=== PATIENT | female | born 1990 | race African-American/Black ===

== ENCOUNTER 2017-07-12 14:10 | Emergency (ER) | payer SELFPAY ==
[2017-07-12 14:20] VITALS: BP 119/69; BMI 26.3
[2017-07-12] MEDS ORDERED: XYLOCAINE VISCOUS MT STA (15:14)
[2017-07-12] MEDS ORDERED: AUGMENTIN 500 MG/125 MG TAB PO ONE ×2 (15:14→15:22)
[2017-07-12] MEDS ORDERED: TORADOL 60 MG VIAL IM ONE (15:14)
--- NOTE | 2017-07-12 15:18 | DR.GENAD ---
HPI - PCP Primary Care Physician: NONE - Complaint/Symptoms Chief Complaint Doctors Comments: Patient complains of right lower teeth pain for the past 7 days getting worst today. Stats she has been taking over the counter medicine for pain without improvement. States she has taken BC powder. States she does not have a local doctor or a dentist. States the pain in 9 of 10. She denies fever, chills, nausea or vomiting. States she is walking today and is unable to eat or chew on the right side. Chief Complaint:: "I HAVE HAD A TOOTHACHE FOR A WEEK NOW AND IT'S GETTING YOUR. 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 - Family History History of Family Medical Conditions: Yes Family Medical History: Diabetes Mellitus, Hypertension - Social History Does patient currently use any type of tobacco product: Yes Have you used tobacco products in the last 12 months: Yes Type of Tobacco Use: Cigars How many years tobacco product used: 2 Does any household member use tobacco: Yes Alcohol Use: None Do you use any recreational Drugs:: Yes Lives With: Alone Lives Where: Home - infectious screening In the last 2 months have you had wt loss of >10#?: NO Have you had fever, night sweats or hemotysis?: No Have you traveled outside the country in the last 6 months?: No ROS - Review of Systems Constitutional: No Symptoms Reported. negative: See HPI, Chills, Diaphoresis, Fever, Malaise, Weakness, Irritable, Fatigue, Loss of Appetite, Other Eyes: No Symptoms Reported ENTM: No Symptoms Reported, Nose Congestion, Mouth Pain. negative: See HPI, Ear Pain, Ear Discharge, Pulling on Ears, Hearing Loss, Nose Pain, Nose Discharge, Epistaxis, Mouth Swelling, Loose Teeth, Drooling, Throat Pain, Throat Swelling, Ear Foreign Body Respiratoy: No Symptoms Reported Cardiovascular: No Symptoms Reported. negative: See HPI, Chest Pain, Edema, Palpitations, Syncope, Cyanosis, Skin Mottling, Other Gastrointestinal/Abdominal: No Symptoms Reported. negative: See HPI, Abdominal Pain, Constipation, Diarrhea, Nausea, Vomiting, Food Intolerance, Other Genitourinary: No Symptoms Reported Neurological: No Symptoms Reported Musculoskeletal: No Symptoms Reported Integumentary: No Symptoms Reported. negative: See HPI, Change in Color, Change in Hair/Nails, Dryness, Lesions, Lumps, Rash, Itching, Wound, Bruises, Juandice, Other Hematologic/Lymphatic: No Symptoms Reported Endocrine: No Symptoms Reported. negative: See HPI, Excessive Sweating, Flushing, Intolerance to Cold, Intolerance to Heat, Increased Hunger, Increased Thirst, Increased Urine, Unexplained Weight Gain, Unexplained Weight Loss, Failure to Thrive, Decreased Appetite, Other Psychiatric: No Symptoms Reported PE - Vital Signs Vitals: Temperature 98.5 F Pulse Rate 72 Respiratory Rate 18 Blood Pressure 119/69 O2 Sat by Pulse Oximetry 97 - General Limitations: No Limitations General Appearance: Alert, In Distress (moderate) - Head Head Exam: Normal Inspection, Atraumatic, Normocephalic - Eyes Eye exam: Normal Appearance, PERRL, EOMI. negative: Scleral Icterus, Conjunctival Injection, Nystagmus, Miosis, Mydrasis, Periorbital Swelling, Periorbital Tenderness, Other - ENT ENT Exam: Normal Exam, Normal Oropharynx, Normal External Ear Exam, Mucous Membranes Moist, TM's Normal Bilaterally TM/Canal Exam: Bilateral Normal Nose Exam: Normal Nose Exam Mouth Exam: Normal Inspection Throat Exam: Normal Inspection - Neck Neck Exam: Normal Inspection, Full ROM, Trachea Midline - Chest Chest Inspection: Normal Inspection, Symmetric Chest Wall Rise - Respiratory Respiratory Exam: Normal Lung Sounds Bilat Respiratory Exam: Bilateral Clear to Auscultation - Cardiovascular Cardiovascular Exam: Regular Rate, Normal Rhythm, Normal Heart Sounds. negative : Bradycardia, Tachycardia, Irregular Rhythm, Systolic Murmur, Diastolic Murmur , Rubs, Gallop, Clicks, JVD, +S1, +S2, +S3, +S4, Other - Abdominal Exam Abdominal Exam: Normal Inspection, Normal Bowel Sounds, Soft. negative: Distention, Tenderness, Guarding, Rebound, Rigidity, Dimnished Bowel Sounds, Hyperactive Bowel Sounds, Hypoactive Bowel Sounds, Organomegaly, Trauma, Incision, Ascites, Mass, Bruit, Pulsatile Mass, Hernia, Other Abdominal Tenderness: negative: RUQ, RLQ, LUQ, LLQ, Epigastrium, Suprapubic, Diffuse, Mild, Moderate, Severe, Other - Extremities Extremities Exam: Normal Inspection, Full ROM, Normal Capillary Refill. negative: Tenderness, Edema, Joint Swelling, Calf Tenderness, Other - Back Back Exam: Normal Inspection, Full ROM. negative: Tenderness, (R) CVA Tenderness, (L) CVA Tenderness, Muscle Spasm, Paraspinal Tenderness, Vertebral Tenderness, Rashes, (R) Sciatic Notch Tenderness, (L) Sciatic Notch Tendern, (R ) Straight Leg Raise, (L) Straight Leg Raise, Other - Neurologic Neurological Exam: Alert, Oriented X3, CN II-XII Intact, Normal Gait, Reflexes Normal - Psychiatric Psychiatric Exam: Normal Affect, Normal Mood. negative: Depressed, Agitated, Anxious, Flat Affect, Manic, Homicidal Ideation, Suicidal Ideation, Other - Skin Skin Exam: Warm, Dry, Intact, Normal Color. negative: Rash, Cyanosis, Diaphoresis, Erythema, Pallor, Mottled, Other - Diagnosis Discharge Problem: Dental caries, Pain, dental - Discharge Plan Disposition: 01 HOME, SELF-CARE Condition: Good Prescriptions: Acetaminophen/Codeine Tab [TYLENOL w/CODEINE #3 (300 MG/30 MG) *] 1 tab PO Q4- 6H PRN #30 tab PRN Reason: Pain Amoxicillin [AMOXIL CAP 500 MG *] 500 mg PO TID #30 cap - Follow ups/Referrals Follow ups/Referrals: NFD,None [Primary Care Provider] - 3 days - Instructions Instructions: Dental Caries, Preventive Dental Care, Adult
[2017-07-12] MEDS ORDERED: TORADOL 60 MG VIAL ONE (15:22)
[2017-07-12] MEDS ORDERED: XYLOCAINE VISCOUS MT ONE (15:27)
[2017-07-12] MEDS ORDERED: XYLOCAINE VISCOUS ONE (15:29)
== END 2017-07-12 15:53 | disposition home or self-care (01) ==
LOC: ER 14:35
DX: K02.9 Dental caries, unspecified (principal); K08.89 Other specified disorders of teeth and supporting structures
CPT/HCPCS: 96372; 99282; J1885

== ENCOUNTER 2017-08-06 17:18 | Emergency (ER) | payer SELFPAY ==
[2017-08-06 17:24] VITALS: BP 134/71; BMI 25.8
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
[2017-08-06] MEDS ORDERED: TORADOL 60 MG VIAL IM ONE (17:54)
[2017-08-06] MEDS ORDERED: TORADOL 60 MG VIAL ONE (17:55)
== END 2017-08-06 18:18 | disposition home or self-care (01) ==
LOC: ER 17:37
DX: K02.9 Dental caries, unspecified (principal); K08.89 Other specified disorders of teeth and supporting structures
CPT/HCPCS: 96372; 99282; J1885

== ENCOUNTER 2018-02-12 22:09 | Emergency (ER) | payer OTHER ==
[2018-02-12 22:23] VITALS: BP 133/81; BMI 25.7
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
== END 2018-02-12 23:38 | disposition home or self-care (01) ==
LOC: ER 22:11
DX: S00.83XA Contusion of other part of head, initial encounter (principal); Y04.0XXA Assault by unarmed brawl or fight, initial encounter; Y92.9 Unspecified place or not applicable
CPT/HCPCS: 70150; 99282

== ENCOUNTER 2018-02-17 16:23 | Emergency (ER) | payer OTHER ==
[2018-02-17 16:32] VITALS: BP 123/62; BMI 25.0
--- NOTE | 2018-02-17 17:07 | ED.ABDFE ---
HPI - PCP Primary Care Physician: NFD - Complaint Chief Complaint Doctors Comments: LOWER ABDOMINAL PAIN TIMES Chief Complaint:: PT C/O HAVING TURNING PAINS TO HER ABD SINCE LAST WEEK AND THE PAIN IS WORSE WHEN SHE EATS.... BR PT DENIES ANY N/V AND C/O DIARRHA AND PT LOWER TO HER BILATERAL QUADS OF HER ABD ,,BR - Nurses notes reviewed Nurses Notes Review: Yes - Source History Provided: Patient - Mode of arrival Mode of Arrival: Ambulatory - Timing Onset of Chief Complaint: 02/10/18 Came on: Suddenly - Duration Duration: Constant Duration: Days - Location Location: RLQ, LUQ, Suprapubic - Severity Severity: Moderate - Quality Quality: Sharp - Context Onset: Suddenly History of: None - Modifying Worsening Factors: Nothing Improving Factors: Nothing - Associated signs and symptoms Associated Signs and Symptoms: None PMH - PMH Past Medical History: No Past Surgical History: Yes Surgical History: Past Surgical History Comment: TUBAL - Family History History of Family Medical Conditions: Yes Family Medical History: Diabetes Mellitus, Hypertension - Social History Does patient currently use any type of tobacco product: No Have you used tobacco products in the last 12 months: No Type of Tobacco Use: Cigars Does any household member use tobacco: No Alcohol Use: None Do you use any recreational Drugs:: No Lives With: Family Lives Where: Home - infectious screening In the last 2 months have you had wt loss of >10#?: NO Have you had fever, night sweats or hemotysis?: No Have you traveled outside the country in the last 6 months?: No Isolation: Standard PE - Vital Signs Vitals: Temperature 97.0 F Pulse Rate 75 Respiratory Rate 20 Blood Pressure 123/62 O2 Sat by Pulse Oximetry 100 ROR - Labs Reviewed Result Diagrams: 02/17/18 18:43 02/17/18 18:43 Laboratory: WBC 6.8 X10^3/uL (3.6-10.0) 02/17/18 18:43 RBC 4.30 X10^6/uL (3.5-5.4) 02/17/18 18:43 Hgb 12.6 g/dL (12.0-16.0) 02/17/18 18:43 Hct 37.4 % (36.0-47.0) 02/17/18 18:43 MCV 87.1 fL (80.0-100.0) 02/17/18 18:43 MCH 29.4 pg (27.0-34.0) 02/17/18 18:43 MCHC 33.7 g/dL (33.0-35.0) 02/17/18 18:43 RDW 12.8 % (11.6-16.5) 02/17/18 18:43 Plt Count 180 X10^3/uL (150.0-450.0) 02/17/18 18:43 MPV 9.8 fL (7.4-11.0) 02/17/18 18:43 Neut % (Auto) 64.4 % (42.0-75.0) 02/17/18 18:43 Lymph % (Auto) 23.4 % (21.0-51.0) 02/17/18 18:43 [place] % (Auto) 9.5 % (0.0-13.0) 02/17/18 18:43 Eos % (Auto) 2.2 % (0.9-2.9) 02/17/18 18:43 Baso % (Auto) 0.5 % (0.2-1.0) 02/17/18 18:43 Neut # (Auto) 4.4 x10^3/uL (2.2-4.8) 02/17/18 18:43 Lymph # (Auto) 1.6 X10^3/uL (1.3-2.9) 02/17/18 18:43 [place] # (Auto) 0.6 x10^3/uL (0.3-0.8) 02/17/18 18:43 Eos # (Auto) 0.2 x10^3/uL (0.0-0.2) 02/17/18 18:43 Baso # (Auto) 0.0 X10^3/uL (0.0-0.1) 02/17/18 18:43 Absolute Nucleated RBC 0.0 /100WBC 02/17/18 18:43 Sodium 140 mmol/L (136-145) 02/17/18 18:43 Corrected Sodium TNP 02/17/18 18:43 Potassium 3.7 mmol/L (3.5-5.1) 02/17/18 18:43 Chloride 104 mmol/L (98-107) 02/17/18 18:43 Carbon Dioxide 27.4 mmol/L (21-32) 02/17/18 18:43 BUN 7 mg/dL (7-18) 02/17/18 18:43 Creatinine 0.74 mg/dL (0.55-1.02) 02/17/18 18:43 Est GFR (MDRD) Af Amer > 60 (>60) 02/17/18 18:43 Est GFR (MDRD) Non-Af > 60 (>60) 02/17/18 18:43 Glucose 78 mg/dL (65-99) 02/17/18 18:43 Calcium 8.4 mg/dL (8.5-10.1) L 02/17/18 18:43 Corrected Calcium TNP 02/17/18 18:43 Total Bilirubin 0.30 mg/dL (0.2-1.0) 02/17/18 18:43 AST 14 Units/L (15-37) L 02/17/18 18:43 ALT 19 Units/L (12-78) 02/17/18 18:43 Alkaline Phosphatase 66 Units/L (46-116) 02/17/18 18:43 Total Protein 7.7 g/dL (6.4-8.2) 02/17/18 18:43 Albumin 3.7 g/dL (3.4-5.0) 02/17/18 18:43 Globulin 4.0 g/dL (2.5-4.5) 02/17/18 18:43 Albumin/Globulin Ratio 0.9 Ratio (1.1-2.1) L 02/17/18 18:43 Amylase 44 Units/L (25-115) 02/17/18 18:43 Lipase 83 Units/L (73-393) 02/17/18 18:43 Specimen Type Clean catch urine 02/17/18 19:29 Urine Color Yellow (YELLOW) 02/17/18 19: Urine Appearance Hazy (CLEAR) 02/17/18 19: Urine pH 7.0 (5.0 - 8.0) 02/17/18 19:29 Ur Specific [place] 1.015 (1.000-1.030) 02/17/18 19:29 Urine Protein Negative (NEGATIVE) 02/17/18 19: Urine Glucose (UA) Negative (NEGATIVE) 02/17/18 19:29 Urine Ketones 3+ (NEGATIVE) 02/17/18 19:29 Urine Occult Blood 4+ (NEGATIVE) 02/17/18 19:29 Urine Nitrite Negative (NEGATIVE) 02/17/18 19:29 Urine Bilirubin Negative (NEGATIVE) 02/17/18 19:29 Urine Urobilinogen Normal (NORMAL) 02/17/18 19:29 Ur Leukocyte Esterase Negative (NEGATIVE) 02/17/18 19:29 Urine RBC 30-50 /HPF (NONE SEEN) 02/17/18 19:29 Urine WBC 0-2 /HPF (NONE SEEN) 02/17/18 19:29 Ur Squamous Epith Cells Rare /HPF (NEGATIVE) 02/17/18 19:29 Urine Bacteria Trace /HPF (NEGATIVE) 02/17/18 19: Urine Mucus Moderate /HPF (NEGATIVE) 02/17/18 19:29 Ur Culture Indicated? No/not indicated 02/17/18 19:29 - Diagnosis Discharge Problem: Abdominal pain Qualifiers: Abdominal location: lower abdomen, unspecified Qualified Code(s): R10.30 - Lower abdominal pain, unspecified - Discharge Plan Condition: Stable Prescriptions: Ibuprofen [MOTRIN TAB 600 MG *] 600 mg PO TID PRN #30 tab PRN Reason: Pain/Inflammation Ranitidine HCl [Zantac] 300 mg PO DAILY #30 tab - Follow ups/Referrals Follow ups/Referrals: NFD,None [Primary Care Provider] - 2 days Reji Velasquez [STAFF PHYSICIAN] - 2 days - Instructions Instructions: Abdominal Pain, Adult, [id number] Additional Instructions: RETURN TO ED IF WORSE.
[2018-02-17] MEDS ORDERED: TORADOL 60 MG VIAL IM ONE (18:38)
[2018-02-17] MEDS ORDERED: TORADOL 60 MG VIAL ONE (18:50)
[2018-02-17 18:53] LABS: BASOPHILS % (AUTO) 0.5 % (0.2-1.0); EOSINOPHILS # (AUTO) 0.2 x10^3/uL (0.0-0.2); EOSINOPHILS % (AUTO) 2.2 % (0.9-2.9); HEMATOCRIT 37.4 % (36.0-47.0); HEMOGLOBIN 12.6 g/dL (12.0-16.0); LYMPHOCYTES # (AUTO) 1.6 X10^3/uL (1.3-2.9); LYMPHOCYTES % (AUTO) 23.4 % (21.0-51.0); MEAN CORPUSCULAR HEMOGLOBIN 29.4 pg (27.0-34.0); MEAN CORPUSCULAR HGB CONC 33.7 g/dL (33.0-35.0); MEAN CORPUSCULAR VOLUME 87.1 fL (80.0-100.0); MEAN PLATELET VOLUME 9.8 fL (7.4-11.0); MONOCYTES # (AUTO) 0.6 x10^3/uL (0.3-0.8); MONOCYTES % (AUTO) 9.5 % (0.0-13.0); NEUTROPHILS # (AUTO) 4.4 x10^3/uL (2.2-4.8); NEUTROPHILS % (AUTO) 64.4 % (42.0-75.0); PLATELET COUNT 180 X10^3/uL (150.0-450.0); RED CELL DISTRIBUTION WIDTH 12.8 % (11.6-16.5); WHITE BLOOD COUNT 6.8 X10^3/uL (3.6-10.0)
[2018-02-17 19:04] LABS: ALANINE AMINOTRANSFERASE 19 Units/L (12-78); ALBUMIN 3.7 g/dL (3.4-5.0); ALKALINE PHOSPHATASE 66 Units/L (46-116); AMYLASE 44 Units/L (25-115); ASPARTATE AMINO TRANSFERASE 14 Units/L (15-37); BLOOD UREA NITROGEN 7 mg/dL (7-18); CALCIUM 8.4 mg/dL (8.5-10.1); CARBON DIOXIDE 27.4 mmol/L (21-32); CHLORIDE 104 mmol/L (98-107); CREATININE 0.74 mg/dL (0.55-1.02); LIPASE 83 Units/L (73-393); SODIUM 140 mmol/L (136-145); TOTAL PROTEIN 7.7 g/dL (6.4-8.2); eGFR BLACK RACES > 60 (>60); eGFR NON BLACK RACES > 60 (>60)
--- NOTE | 2018-02-17 19:09 | RAD ---
HISTORY: Abdominal pain Study: Acute abdominal series Comparison: None Findings: The trachea is midline. The cardiac silhouette is unremarkable. The lungs are clear without focal i nfiltrate or effusion. The bony thorax is unremarkable. Flat plate and upright evaluation of the abdomen demonstrates a normal bowel gas pattern. No patholo gical soft tissue mass or calcification can be observed. The patient appears to be status post bilate ral tubal ligation. The bony structures are grossly intact. IMPRESSION: 1. No acute cardiopulmonary disease. 2. No evidence for acute abdominal pathology identified. Reported By:
[2018-02-17 19:34] LABS: BILIRUBIN,URINE NEGATIVE (NEGATIVE); BLOOD/HEMOGLOBIN,URINE 4+ (NEGATIVE); GLUCOSE, URINE NEGATIVE (NEGATIVE); KETONES,URINE 3+ (NEGATIVE); LEUKOCYTE ESTERASE ,URINE NEGATIVE (NEGATIVE); NITRITES,URINE NEGATIVE (NEGATIVE); PROTEIN,URINE NEGATIVE (NEGATIVE); UROBILINOGEN,URINE NORMAL (NORMAL)
[2018-02-17 19:35] LABS: APPEARANCE,URINE HAZY (CLEAR); COLOR,URINE YELLOW (YELLOW)
[2018-02-17 19:41] LABS: BACTERIA,URINE TRACE /HPF (NEGATIVE); RBC,URINE 30-50 /HPF (NONE SEEN); SQUAMOUS EPITHELIAL CELL,UR RARE /HPF (NEGATIVE)
[2018-02-17 19:42] LABS: MUCUS,URINE MODERATE /HPF (NEGATIVE)
== END 2018-02-17 20:10 | disposition home or self-care (01) ==
LOC: ER 16:39
DX: R10.84 Generalized abdominal pain (principal)
CPT/HCPCS: 36415; 74022; 80053; 81001; 82150; 83690; 85025; 96372; 99283; J1885

== ENCOUNTER 2018-04-05 15:33 | Emergency (ER) | payer OTHER ==
[2018-04-05 15:40] VITALS: BMI 26.6
[2018-04-05] MEDS ORDERED: NS 500 ML IV 500 ML IV ONE (16:06)
[2018-04-05] MEDS ORDERED: TORADOL 30 MG VIAL IVP ONE (16:06)
[2018-04-05] MEDS ORDERED: TORADOL 30 MG VIAL ONE (16:07)
--- NOTE | 2018-04-05 16:07 | DR.GENAD ---
HPI - PCP Primary Care Physician: none - Complaint/Symptoms Chief Complaint Doctors Comments: Patient presents with complaint of body ache, headache, rhinorrhea and fever intermittently for two days. She admits to nausea but no diarrhea or vomiting. Chief Complaint:: Body hurting for two days with sore throat and head hurting. " iv been congested for two days - Source History Provided: Patient - Mode of Arrival Mode of Arrival: Ambulatory - Timing Onset of Chief Complaint: 04/04/18 PMH - PMH Past Medical History: No Past Surgical History: Yes Surgical History: Past Surgical History Comment: tubal - Family History History of Family Medical Conditions: Yes Family Medical History: Diabetes Mellitus, Hypertension - Social History Does patient currently use any type of tobacco product: Yes Have you used tobacco products in the last 12 months: Yes Type of Tobacco Use: Cigars How many years tobacco product used: 10 Does any household member use tobacco: No Alcohol Use: None Do you use any recreational Drugs:: No Lives With: Family Lives Where: Home - infectious screening In the last 2 months have you had wt loss of >10#?: NO Have you had fever, night sweats or hemotysis?: No Have you traveled outside the country in the last 6 months?: No Isolation: Standard ROS - Review of Systems Eyes: No Symptoms Reported ENTM: No Symptoms Reported Respiratoy: No Symptoms Reported Cardiovascular: No Symptoms Reported Gastrointestinal/Abdominal: No Symptoms Reported Genitourinary: No Symptoms Reported Neurological: No Symptoms Reported Musculoskeletal: No Symptoms Reported Integumentary: No Symptoms Reported Hematologic/Lymphatic: No Symptoms Reported Endocrine: No Symptoms Reported Psychiatric: No Symptoms Reported All Other Systems: Reviewed and Negative PE - Vital Signs Vitals: Temperature 98 F Pulse Rate 90 Respiratory Rate 18 Blood Pressure 136/70 O2 Sat by Pulse Oximetry 100 - General Limitations: No Limitations General Appearance: Alert, In No Apparent Distress - Head Head Exam: Normal Inspection, Atraumatic - Eyes Eye exam: Normal Appearance, PERRL, EOMI - ENT ENT Exam: Normal Exam, Normal Oropharynx External Ear Exam: Normal External Inspection TM/Canal Exam: Bilateral Normal Nose Exam: Normal Nose Exam Mouth Exam: Normal Inspection Throat Exam: Normal Inspection - Neck Neck Exam: Normal Inspection - Chest Chest Inspection: Normal Inspection - Respiratory Respiratory Exam: Normal Lung Sounds Bilat Respiratory Exam: Bilateral Clear to Auscultation - Cardiovascular Cardiovascular Exam: Regular Rate, Normal Rhythm - Abdominal Exam Abdominal Exam: Normal Inspection, Normal Bowel Sounds Abdominal Tenderness: negative: RUQ, RLQ, LUQ, LLQ, Epigastrium, Suprapubic, Diffuse, Mild, Moderate, Severe, Other - Extremities Extremities Exam: Normal Inspection, Full ROM - Back Back Exam: Normal Inspection - Neurologic Neurological Exam: Alert, Oriented X3, CN II-XII Intact - Psychiatric Psychiatric Exam: Normal Affect, Normal Mood - Skin Skin Exam: Warm, Dry, Intact Course - Reevaluation 1st: Improved - Education/Counseling Education/Counseling: Counseling Educated On: Treatment, Diagnosis, Prognosis - Diagnosis Discharge Problem: acute viral illness - Discharge Plan Condition: Stable - Follow ups/Referrals Follow ups/Referrals: NFD,None [Primary Care Provider] - 3 days - Instructions
[2018-04-05] MEDS ORDERED: NS 1000 ML 1,000 ML IV ONE (16:08)
[2018-04-05] MEDS ORDERED: ZOFRAN INJ 4 MG VIAL IVP ONE (16:08)
[2018-04-05] MEDS ORDERED: ZOFRAN INJ 4 MG VIAL ONE (16:09)
[2018-04-05 17:07] VITALS: BP 107/67
== END 2018-04-05 17:11 | disposition home or self-care (01) ==
LOC: ER 15:45
DX: R52 Pain, unspecified (principal); B34.9 Viral infection, unspecified
CPT/HCPCS: 96365; 96374; 96375; 99282; 99283; A4222; J1885; J2405